=== PATIENT | male | born 1990 | race American Indian/Alaskan Native ===

== ENCOUNTER 2018-03-21 21:47 | Emergency (ER) | payer BC ==
[2018-03-21 22:10] VITALS: O2SAT 100
--- NOTE | 2018-03-21 22:28 | ED PDOC ---
HPI: Back Time Seen by Provider: 03/21/18 22:19 Chief Complaint (Nursing): Back Pain Chief Complaint (Provider): low back pain History Per: Patient History/Exam Limitations: no limitations Onset/Duration Of Symptoms: Hrs (1) Current Symptoms Are (Timing): Still Present Exacerbating Factor(s): Turning, Movement Additional Complaint(s): 28 y/o male presents for evaluation of low back pain x 1 hour. patient states he was hunched over on the toilet when pain started, but states he did not strain to have bowel movement. Patient describes pain as "spasming" of the muscle, worse with positional change. Patient admits to similar spasm in past. Denies fever, nausea/vomiting, extremity numbness/weakness, bowel/bladder incontinence, urinary symptoms. Past Medical History Reviewed: Historical Data, Nursing Documentation, Vital Signs Vital Signs: Last Vital Signs Temp 98.6 F 03/21/18 22:10 Pulse 76 03/21/18 22:10 Resp 18 03/21/18 22:10 BP 147/75 03/21/18 22:10 Pulse Ox 100 03/21/18 22:10 - Medical History PMH: No Chronic Diseases - Surgical History Surgical History: No Surg Hx - Family History Family History: States: No Known Family Hx - Living Arrangements Living Arrangements: With Family - Home Medications Home Medications: Ambulatory Orders Medication Instructions Recorded Cyclobenzaprine [Cyclobenzaprine 10 mg PO BID PRN #14 tab 03/22/18 HCl] Naproxen [Naprosyn] 500 mg PO Q12 PRN #20 tablet 03/22/18 traMADol [Ultram] 50 mg PO Q8 PRN #10 tab 03/22/18 - Allergies Allergies/Adverse Reactions: Allergies Allergy/AdvReac Type Severity Reaction Status Date / Time No Known Allergies Allergy Verified 03/21/18 22:08 Review of Systems ROS Statement: Except As Marked, All Systems Reviewed And Found Negative Musculoskeletal: Positive for: Back Pain Physical Exam - Reviewed Nursing Documentation Reviewed: Yes Vital Signs Reviewed: Yes - Physical Exam Appears: Positive for: Well, Non-toxic, No Acute Distress Back: Positive for: Normal Inspection. Negative for: L CVA Tenderness, R CVA Tenderness, Vertebral Tenderness, Decreased ROM, Muscle Spasm - ECG O2 Sat by Pulse Oximetry: 100 - Progress ED Course And Treament: -Toradol IM -flexeril PO -tramadol PO On re-eval, patient reports improvement of symptoms. Ambulating without difficulty Patient educated on findings, discharged with rx Naproxen, Flexeril, Tramadol Advised warm compresses Follow up PMD within 2-3 days Return precautions given Disposition - Clinical Impression Clinical Impression: Spasm of muscle of lower back - Patient ED Disposition Is Patient to be Admitted: No Counseled Patient/Family Regarding: Diagnosis, Need For Followup, Rx Given - Disposition Referrals: [facility] [Outside] Disposition: Routine/Home Disposition Time: 00:46 Condition: IMPROVED Prescriptions: Cyclobenzaprine [Cyclobenzaprine HCl] 10 mg PO BID PRN #14 tab PRN Reason: Muscle Spasm Naproxen [Naprosyn] 500 mg PO Q12 PRN #20 tablet PRN Reason: Pain, Moderate (4-7) traMADol [Ultram] 50 mg PO Q8 PRN #10 tab PRN Reason: Pain, Severe (8-10) Instructions: Muscle Spasms (DC) Forms: [employer] ([place]), [facility] ED School/Work Excuse
[2018-03-22 01:10] VITALS: BP 134/82; PULSE 74; RESP 17; TEMP 97.7
== END 2018-03-22 01:15 | disposition home or self-care (01) ==
LOC: H.ER 21:47
DX: M62.830 Muscle spasm of back (principal)
CPT/HCPCS: 96372; 99283; J1885